=== PATIENT | female | born 1985 | race African-American/Black ===

== ENCOUNTER 2017-09-04 22:20 | Emergency (ER) | payer MEDICARE | END 2017-09-04 22:41 | disposition home or self-care (01) | LOC: SCSER 22:20 | DX: R05 Cough (principal); I10 Essential (primary) hypertension; E66.9 Obesity, unspecified; F41.9 Anxiety disorder, unspecified; F32.9 Major depressive disorder, single episode, unspecified | CPT/HCPCS: 99283 ==

== ENCOUNTER 2018-07-15 09:48 | Emergency (ER) | payer MEDICARE ==
[2018-07-15] MEDS ORDERED: Aspirin Chewable 81 MG TAB ONE (10:37)
[2018-07-15 10:44] LABS: ALT (SGPT) 11 U/L (8-55); AST (SGOT) 11 U/L (5-34); Alkaline Phosphatase 70 U/L (40-150); Anion Gap 16 mmol/L (10-20); BUN (Urea Nitrogen) 13 mg/dL (7.0-18.7); Bilirubin, Total 0.3 mg/dL (0.2-1.2); Calc. Creatinine Clearance 0 mL/min (70-130); Calcium 9.3 mg/dL (7.8-10.44); Carbon Dioxide 27 mmol/L (22-29); Chloride 100 mmol/L (98-107); Estimated GFR-MDRD Greater than 90; Globulin 3.9 g/dL (2.4-3.5); Glucose 116 mg/dL (70-105); Lipase 10 U/L (8-78); Protein, Total 7.9 g/dL (6.0-8.3); Sodium 140 mmol/L (136-145)
[2018-07-15 10:48] LABS: Potassium 2.8 mmol/L (3.5-5.1)
[2018-07-15] MEDS ORDERED: Potassium Chloride 20 MEQ TAB ONE (10:49)
--- NOTE | 2018-07-15 10:55 | RAD ---
SINGLE VIEW OF THE CHEST: Comparison: None. History: Chest pain FINDINGS: Single view of the chest shows a cardiomediastinal silhouette which is upper limits of normal in size . A catheter projecting over the neck and right chest wall may represent a [employer] shunt. There is questio nable incongruity of the catheter in the lower neck. There is no evidence of consolidation, mass, or pleural effusion. IMPRESSION: 1. No evidence of acute cardiopulmonary disease. 2. Possible disruption of [employer] shunt. POS: [id number]
[2018-07-15 10:58] LABS: #Basophils 0.2 thou/uL (0.0-0.2); #Eosinphils 0.2 thou/uL (0.0-0.7); #Lymphocytes 2.9 thou/uL (1.20-3.40); #Monocytes 0.5 thou/uL (0.11-0.59); %Basophils 1.9 % (0.0-1.0); %Eosinophils 1.8 % (0.0-10.0); %Lymphocytes 32.9 % (21.0-51.0); %Monocytes 6.2 % (0.0-10.0); %Neutrophils 57.3 % (42.0-75.0); Hemoglobin 10.7 g/dL (12.0-16.0); Hypochromia SLIGHT = 6-15 cells (100X) (0-5/hpf); MDiff Complete? YES; Mean Corpuscular HGB CONC 30.8 g/dL (32.0-36.0); Mean Corpuscular Hemoglobin 23.1 pg (27.0-31.0); Mean Corpuscular Volume 75.1 fL (78.0-98.0); Mean Platelet Volume 5.9 fL (7.4-10.4); Microcytosis SLIGHT = 6-15 cells (100X) (0-5/hpf); Platelet Count 395 thou/uL (130-400); Platelet Morphology Comment Appears Adequate; RBC Distribution Width 15.5 % (11.5-14.5); Red Blood Cell (RBC) Count 4.61 mill/uL (4.20-5.40); White Blood Cell (WBC) Count 8.7 thou/uL (4.8-10.8)
== END 2018-07-15 14:11 | disposition home or self-care (01) ==
LOC: SCSER 09:48
DX: E87.6 Hypokalemia (principal); D64.9 Anemia, unspecified; I10 Essential (primary) hypertension; E66.9 Obesity, unspecified; F41.9 Anxiety disorder, unspecified; F32.9 Major depressive disorder, single episode, unspecified; Z79.899 Other long term (current) drug therapy
CPT/HCPCS: 36415; 71045; 80053; 83690; 84484; 85025; 85379; 93005; 94760